=== PATIENT | female | born 1965 | race Caucasian/White ===

== ENCOUNTER → 2016-06-15 | Outpatient (CLI) | payer BC ==
[~2016-06-15] MED LIST: LEVO125T6 PO
--- OUTSIDE RECORDS SUMMARY | 2016-06-15 12:41 | XMS REPORT | Continuity of Care Document ---
Author Author [facility] Organization [facility] Address Unknown Phone Unavailable Allergies Active Description Code Type Severity Reaction Onset Reported/Identified Relationship to Patient Clinical Status Yes No Known Drug Allergies [id number] Drug Allergy Unknown N/ A 07/21/2015 Medications Problems Date Dx Coded Attending Type Code Diagnosis Diagnosed By 05/12/2014 Ot 733.90 05/12/2014 SANJUANA WILSON, YASMIN Baker Ot 793.80 05/12/2014 QUICK, RADHA W SOLAR INSTALLER Ot V72.31 05/12/2014 QUICK, RADHA W SOLAR INSTALLER Ot V76.12 08/14/2014 Ot 733.90 08/14/2014 YASMIN WEI MD Ot 793.80 08/14/2014 QUICK, RADHA W SOLAR INSTALLER Ot V72.31 08/14/2014 QUICK, RADHA W SOLAR INSTALLER Ot V76.12 08/14/2014 QUICK, RADHA W SOLAR INSTALLER Ot V76.12 07/21/2015 YASMIN WEI MD Ot Z01.818 ENCOUNTER FOR OTHER PREPROCEDURAL EXAMIN 07/21/2015 YASMIN WEI MD Ot Z12.11 ENCOUNTER FOR SCREENING FOR MALIGNANT NE 07/22/2015 YASMIN WEI MD Ot Z01.818 ENCOUNTER FOR OTHER PREPROCEDURAL EXAMIN 07/22/2015 YASMIN WEI MD Ot Z12.11 ENCOUNTER FOR SCREENING FOR MALIGNANT NE 07/23/2015 YASMIN WEI MD Ot Z12.11 ENCOUNTER FOR SCREENING FOR MALIGNANT NE 07/29/2015 QUICK, RADHA W SOLAR INSTALLER Ot Z12.31 ENCNTR SCREEN MAMMOGRAM FOR MALIGNANT NE 07/29/2015 QUICK, RADHA W SOLAR INSTALLER Ot Z12.31 ENCNTR SCREEN MAMMOGRAM FOR MALIGNANT NE 09/10/2015 QUICK, RADHA W SOLAR INSTALLER Ot Z12.31 ENCNTR SCREEN MAMMOGRAM FOR MALIGNANT NE 06/14/2016 Ot 733.90 BONE CARTILAGE DIS NOS 06/14/2016 YASMIN WEI MD Ot 793.80 UNSPEC ABNORMAL MAMMOGRAM 06/14/2016 STEPHANIEELIZAAlma Perez SOLAR INSTALLER Ot V72.31 ROUTINE GYNECOLOGICAL EXAMINATION 06/14/2016 QUICKRADHA SOLAR INSTALLER Ot V76.12 OTH SCREEN MAMMO-MALIGN NEOPLASM OF ALE 06/14/2016 QUICK, RADHA W SOLAR INSTALLER Ot V76.12 OTH SCREEN MAMMO-MALIGN NEOPLASM OF ALE 06/14/2016 QUICKELIZAAlma Perez SOLAR INSTALLER Ot Z12.31 ENCNTR SCREEN MAMMOGRAM FOR MALIGNANT NE 06/15/2016 Ot 733.90 BONE CARTILAGE DIS NOS 06/15/2016 YASMIN WEI MD Ot 793.80 UNSPEC ABNORMAL MAMMOGRAM 06/15/2016 ELIZA BROWNAlma Perez SOLAR INSTALLER Ot V72.31 ROUTINE GYNECOLOGICAL EXAMINATION 06/15/2016 STEPHANIEELIZAAlma Perez SOLAR INSTALLER Ot V76.12 OTH SCREEN MAMMO-MALIGN NEOPLASM OF ALE 06/15/2016 STEPHANIE RADHA W SOLAR INSTALLER Ot V76.12 OTH SCREEN MAMMO-MALIGN NEOPLASM OF ALE 06/15/2016 STEPHANIE RADHA W SOLAR INSTALLER Ot Z12.31 ENCNTR SCREEN MAMMOGRAM FOR MALIGNANT NE Procedures Results Encounters ACCT No. Visit Date/Time Discharge Status Pt. Type Provider Facility Loc./Unit Complaint [id number] 07/23/2015 07:18:00 2015 09:40:00 DIS Outpatient YASMIN WEI MD [facility] SDC SCREENING [id number] 07/21/2015 05:57:00 2015 14:19:00 DIS Outpatient YASMIN WEI MD [facility] PREOP SCREENING [id number] 07/21/2014 08:35:00 2014 23:59:59 CLS Outpatient RADHA BROWN [facility] RAD SCREENING [id number] 07/11/2013 09:21:00 2013 23:59:59 CLS Outpatient RADHA BROWN [facility] RAD ROUTINE [id number] 07/26/2012 07:47:00 2012 23:59:59 CLS Outpatient YASMIN WEI MD [facility] RAD RT ABN MAMMOGRAM [id number] 06/15/2016 12:38:00 ACT Outpatient RADHA BROWN [facility] RAD ABDOMINAL BLOATING [id number] 06/14/2016 09:35:00 Document Registration [id number] 06/14/2016 09:35:00 Document Registration [id number] 07/28/2015 08:46:00 ACT Outpatient RADHA BROWN [facility] RAD SCREENING [id number] 04/26/2012 08:13:00 Document Registration
--- NOTE | 2016-06-15 17:16 | Diagnostic Imaging Report ---
INDICATION: Abdominal bloating. TECHNIQUE: Multiple real time varma scale sonographic images were obtained of the pelvis transabdominally and endovaginally. CORRELATION STUDY: None. FINDINGS: UTERUS/ENDOMETRIUM: Uterus measures 5.9 x 3.5 x 2.6 cm. The uterus has an unremarkable appearance. The endometrial thickness is within normal limits for premenopausal patient at 14 mm. However, this would be abnormally thickened in a postmenopausal patient. The ovaries are not visualized on either transabdominal or endovaginal imaging. This may be owing to position, atrophic changes, or obscuration by overlying bowel gas. No significant free pelvic fluid. IMPRESSION: 1. Endometrial thickness at 14 mm. This would be considered upper limits of normal for premenopausal patient but fairly abnormally thickened for postmenopausal patient, which would raise concern for endometrial hyperplasia versus carcinoma. Clinical correlation recommended. Followup imaging evaluation would be recommended for reassessment. 2. Nonvisualization of either ovary. Dictated by: Dictated on workstation # [id number]
== END ==
LOC: RAD 12:38
PROVIDERS: ATTEND Nurse Practitioner
DX: R14.0 Abdominal distension (gaseous) (principal)
CPT/HCPCS: 76830; 76856

== ENCOUNTER → 2016-08-02 | Outpatient (CLI) | payer BC ==
--- NOTE | 2016-08-02 19:53 | Diagnostic Imaging Report ---
Bilateral screening mammogram The current study was also evaluated with a Computer Aided Detection (CAD) system. Indication: Screening. No current complaints stated on the questionnaire. COMPARISON: 07/28/15. FINDINGS: The breasts are composed of heterogeneously dense parenchyma which may decrease mammographic sensitivity. There is no mass, architectural distortion or suspicious cluster of calcification. Allowing for technique and positional differences, no suspicious change is seen. IMPRESSION: No significant change. ACR BI-RADS Category 2: Benign findings. Result letter will be mailed to the patient. Note: At least 10% of breast cancer is not imaged by mammography. Dictated by: Dictated on workstation # [id number]
== END ==
LOC: RAD 08:41
PROVIDERS: ATTEND Nurse Practitioner
DX: Z12.31 Encounter for screening mammogram for malignant neoplasm of breast (principal); R14.0 Abdominal distension (gaseous)
CPT/HCPCS: 77067

== ENCOUNTER → 2017-08-03 | Outpatient (CLI) | payer BC ==
--- NOTE | 2017-08-03 12:30 | Diagnostic Imaging Report ---
Indication: Routine screening. Comparison is made with prior study from 08/02/2016 and 07/28/2015. 2-D and 3-D bilateral screening mammography was performed with CAD. Findings: Scattered fibroglandular densities are identified bilaterally. No dominant mass or malignant-appearing calcifications are seen. The axillae are unremarkable. Impression: BI-RADS category 1. No mammographic features suspicious for malignancy are identified. ACR BI-RADS Category 1: Negative. Result letter will be mailed to the patient. Note: At least 10% of breast cancer is not imaged by mammography. Dictated by: Dictated on workstation # [id number]
== END ==
LOC: RAD 07:52
PROVIDERS: ATTEND Nurse Practitioner
DX: Z12.31 Encounter for screening mammogram for malignant neoplasm of breast (principal)
CPT/HCPCS: 77067

== ENCOUNTER → 2018-04-12 | Outpatient (CLI) | payer BC ==
--- NOTE | 2018-04-12 14:14 | Diagnostic Imaging Report ---
INDICATION: Abnormal blood work and right hip pain. Study is performed to evaluate for Paget's disease. TECHNIQUE: Patient was administered 26.4 mCi technetium 99m MDP intravenously and whole-body imaging was performed after a three-hour delay. FINDINGS: There is normal uptake of activity by the axial and appendicular skeleton. There is uptake by both kidneys with excretion into the urinary bladder. No abnormal foci of tracer accumulation are seen apart from some mild uptake in the right great toe, likely degenerative. No typical bone scan findings of Paget's disease are seen. There is no evidence of occult fracture or osseous metastatic disease. IMPRESSION: Essentially unremarkable whole body bone scan. Dictated by: Dictated on workstation # [id number]
== END ==
LOC: CARD 10:26
PROVIDERS: ATTEND Internal Medicine
DX: M25.551 Pain in right hip (principal)
CPT/HCPCS: 78306

== ENCOUNTER → 2018-06-03 | Outpatient (CLI) | payer BC ==
--- NOTE | 2018-06-03 16:45 | Diagnostic Imaging Report ---
INDICATION: Naheed's thyroiditis, mild dysphagia. TECHNIQUE: Grayscale sonographic images of the thyroid gland. CORRELATION STUDY: None FINDINGS: RIGHT LOBE: 3.2 x 1.3 x 0.9 cm. LEFT LOBE: 3.2 x 1.2 x 1.4 cm. Overall, there is fairly heterogeneous echotexture throughout both lobes of the thyroid gland. Slightly lobulated echotexture. No definitive mass lesion. The isthmus is with similar appearing echogenicity. IMPRESSION: Overall small, fairly heterogeneous appearance about the thyroid gland, consistent with likely chronic changes of Naheed thyroiditis. No definitive mass lesion. (Normal gland size: 4-5 x 2 x 2 cm) Dictated by: Dictated on workstation # [id number]
== END ==
LOC: RAD 15:20
PROVIDERS: ATTEND Internal Medicine
DX: E06.3 Autoimmune thyroiditis (principal); R13.10 Dysphagia, unspecified
CPT/HCPCS: 76536

== ENCOUNTER → 2018-08-05 | Outpatient (CLI) | payer BC ==
--- NOTE | 2018-08-05 12:38 | Diagnostic Imaging Report ---
INDICATION: Routine screening. COMPARISON: 08/03/2017 and 08/02/2016. TECHNIQUE: 2D and 3D bilateral screening mammography was performed with CAD. FINDINGS: Scattered fibroglandular densities are identified bilaterally. The parenchymal pattern is stable. No mass or malignant appearing microcalcifications are seen. The axillae are unremarkable. IMPRESSION: No mammographic features suspicious for malignancy are identified. ACR BI-RADS Category 1: Negative. Result letter will be mailed to the patient. Note: At least 10% of breast cancer is not imaged by mammography. Dictated by: Dictated on workstation # [id number]
== END ==
LOC: RAD 07:58
PROVIDERS: ATTEND Nurse Practitioner
DX: Z12.31 Encounter for screening mammogram for malignant neoplasm of breast (principal)
CPT/HCPCS: 77067

== ENCOUNTER → 2018-11-29 | Outpatient (CLI) | payer BC ==
--- NOTE | 2018-11-29 08:28 | Diagnostic Imaging Report ---
INDICATION: Elevated alkaline phosphatase TECHNIQUE: Multiple grayscale sonographic images were obtained of the right upper quadrant of the abdomen. CORRELATION STUDY: None FINDINGS: LIVER: There is uniform echotexture within the visualized portions of the liver. There is normal, hepatopedal direction of flow within the main portal vein. Liver length 11.3 cm. GALLBLADDER: The gallbladder demonstrates no definitive shadowing gallstones. No abnormal gallbladder wall thickening or pericholecystic fluid. COMMON BILE DUCT: Nondilated at 4 mm. PANCREAS: Visualized portions appearing unremarkable. RIGHT KIDNEY: Measures 9.6 x 4.2 x 3.3 cm. No hydronephrosis. AORTA/IVC: Not well visualized. OTHER: None. IMPRESSION: 1. Negative appearing right upper quadrant abdominal ultrasound. Dictated by: Dictated on workstation # [id number]
== END ==
LOC: RAD 07:44
PROVIDERS: ATTEND Nurse Practitioner Family
DX: R74.8 Abnormal levels of other serum enzymes (principal)
CPT/HCPCS: 76705

== ENCOUNTER → 2018-12-11 | Outpatient (CLI) | payer BC ==
[~2018-12-11] MED LIST changes: +BARIUM SUSPENSION 2.1% (VANILLA SILQ) 450 ML PO ONE; +HOLD METFORMIN - RECEIVED CONTRAST 20 ML VIAL IV SCH; +IOHEXOL 350 MG/ML 100 ML (OMNIPAQUE 350) VIAL IV ONE; +NS 100 ML (IVPB) BAG IV ONE
--- NOTE | 2018-12-11 12:30 | Diagnostic Imaging Report ---
PROCEDURE: CT abdomen and pelvis with and without contrast. TECHNIQUE: Precontrast acquisitions were acquired through the abdomen and pelvis. Multiple contiguous axial images were obtained through the abdomen and pelvis after the administration of intravenous contrast. Auto Exposure Controls were utilized during the CT exam to meet ALARA standards for radiation dose reduction. INDICATION: Elevated alkaline phosphatase levels as well as bloating. COMPARISON: No prior studies are available for comparison. FINDINGS: The lung bases are clear. No discrete liver mass is identified. No biliary duct dilatation is seen. Gallbladder is unremarkable. The pancreas and spleen are unremarkable. No adrenal mass is detected. No definite renal calculi or hydronephrosis is seen. Aorta is non-aneurysmal. No central retroperitoneal or mesenteric lymphadenopathy is seen. Small and large bowel loops are normal in caliber. No obstruction is seen. There is no free fluid or loculated fluid collection. Bladder and uterus are unremarkable. No pelvic lymphadenopathy is seen. Bony structures are unremarkable. IMPRESSION: Unremarkable pre- and postcontrast CT of the abdomen and pelvis. No acute feature is detected. Dictated by: Dictated on workstation # [id number]
== END ==
LOC: RAD 11:39
PROVIDERS: ATTEND Nurse Practitioner Family
DX: R74.8 Abnormal levels of other serum enzymes (principal); R14.0 Abdominal distension (gaseous)
CPT/HCPCS: 74178

== ENCOUNTER → 2019-07-29 | Outpatient (CLI) | payer BC ==
[~2019-07-29] MED LIST changes: -BARIUM SUSPENSION 2.1% (VANILLA SILQ) 450 ML PO ONE; -HOLD METFORMIN - RECEIVED CONTRAST 20 ML VIAL IV SCH; -IOHEXOL 350 MG/ML 100 ML (OMNIPAQUE 350) VIAL IV ONE; -NS 100 ML (IVPB) BAG IV ONE
== END ==
LOC: LABNPT 14:05
PROVIDERS: ATTEND Family Medicine
DX: Z11.59 Encounter for screening for other viral diseases (principal); Z01.818 Encounter for other preprocedural examination
CPT/HCPCS: 87635

== ENCOUNTER → 2019-10-16 | Outpatient (CLI) | payer BC ==
--- NOTE | 2019-10-17 09:58 | Diagnostic Imaging Report ---
charles thomas [id number] EXAMINATION: Bilateral screening mammogram INDICATION: Routine screening. Comparison is made with prior mammogram 08/05/2018 and 08/03/2017. 2-D and 3-D bilateral screening mammography was performed with CAD. Both breasts remain heterogeneously dense, limiting the sensitivity of mammography. The parenchymal pattern is stable. No mass or malignant appearing microcalcifications are seen. Axillae are unremarkable. IMPRESSION: BI-RADS Category 1 No mammographic features suspicious for malignancy are identified. ACR BI-RADS Category 1: Negative. Result letter will be mailed to the patient. Note: At least 10% of breast cancer is not imaged by mammography. Dictated by: Dictated on workstation # [id number]
== END ==
LOC: RAD 07:30
PROVIDERS: ATTEND Nurse Practitioner Family
DX: Z12.31 Encounter for screening mammogram for malignant neoplasm of breast (principal)
CPT/HCPCS: 77063; 77067

== ENCOUNTER → 2020-10-25 | Outpatient (CLI) | payer BC ==
--- NOTE | 2020-10-25 14:39 | Diagnostic Imaging Report ---
INDICATION: Routine screening. Comparison is made with prior mammogram 10/16/2019 and 08/05/2018. 2-D and 3-D bilateral screening mammography was performed with CAD. Both breasts are heterogeneously dense, limiting the sensitivity of mammography. No mass or malignant-appearing microcalcifications are seen. Axillae are unremarkable. IMPRESSION: BI-RADS Category 1 No mammographic features suspicious for malignancy are identified. ACR BI-RADS Category 1: Negative. Result letter will be mailed to the patient. Note: At least 10% of breast cancer is not imaged by mammography. Dictated by: Dictated on workstation # [id number]
== END ==
LOC: RAD 07:55
PROVIDERS: ATTEND Family Medicine
DX: Z12.31 Encounter for screening mammogram for malignant neoplasm of breast (principal)
CPT/HCPCS: 77063; 77067

== ENCOUNTER → 2021-11-29 | Outpatient (CLI) | payer BC ==
--- NOTE | 2021-11-29 08:56 | Diagnostic Imaging Report ---
Indication: Routine screening. Comparison is made with prior mammogram 10/25/2020 and 10/16/2019. 2-D and 3-D bilateral screening mammography was performed with CAD. CAD is utilized. The current study was also evaluated with a Computer Aided Detection (CAD) system. Both breasts are heterogeneously dense, limiting the sensitivity of mammography. The parenchymal pattern is stable. No mass or malignant-appearing microcalcifications are seen. Axillae are unremarkable. IMPRESSION: BI-RADS Category 1 No mammographic features suspicious for malignancy are identified. ACR BI-RADS Category 1: Negative. Result letter will be mailed to the patient. Note: At least 10% of breast cancer is not imaged by mammography. Dictated by: Dictated on workstation # [id number]
== END ==
LOC: RAD 07:30
PROVIDERS: ATTEND Nurse Practitioner Family
DX: Z12.31 Encounter for screening mammogram for malignant neoplasm of breast (principal)
CPT/HCPCS: 77063; 77067

== ENCOUNTER → 2022-12-19 | Outpatient (CLI) | payer BC ==
--- NOTE | 2022-12-19 15:41 | Diagnostic Imaging Report ---
INDICATION: Routine screening. COMPARISON: 11/29/2021 and 10/25/2020. TECHNIQUE: 2D and 3D bilateral screening mammography was performed with CAD. FINDINGS: The parenchymal pattern is stable. No mass or malignant-appearing microcalcifications are seen. The axillae are unremarkable. IMPRESSION: No mammographic features suspicious for malignancy are identified. ACR BI-RADS Category 1: Negative. Result letter will be mailed to the patient. Note: At least 10% of breast cancer is not imaged by mammography. Dictated by: Dictated on workstation # [id number]
== END ==
LOC: RAD 07:30
PROVIDERS: ATTEND Family Medicine
DX: Z12.31 Encounter for screening mammogram for malignant neoplasm of breast (principal)
CPT/HCPCS: 77063; 77067